=== PATIENT | male | born 1980 | race Two or more races ===

== ENCOUNTER 2024-12-05 09:42 | Emergency (ER) | payer MEDICAID, SELFPAY ==
[2024-12-05 09:43] VITALS: BMI 28.8
[2024-12-05 09:51] VITALS: BP 127/82; PULSE 77; RESP 16; TEMP 36.7; O2SAT 96
--- NOTE | 2024-12-05 10:02 | XR_ITS ---
Examination: Left ribs with PA chest 5 views TECHNIQUE: : Chest PA, RIBS AP, RPO, LPO, AP coned lower ribs 5 views Exam date and time: December 05, 2024 1006 hours INDICATIONS: Sports injury to the left chest 3 days ago left rib pain Findings: Normal heart size No pneumothorax No acute rib fractures IMPRESSION: No pneumothorax pulmonary contusion or hemothorax No acute rib fractures
--- NOTE | 2024-12-05 10:11 | EDNOTE_ITS ---
<Statement entered by Lissa Mejia MD - 12/05/24 13:40> As co-signing physician, I was present and available for consult prn. I concur with the plan and care as documented by the midlevel provider. ED Chest Pain RME/HPI General Chief Complaint: Chest Pain Stated Complaint: CHEST PAIN; KNEED IN CHEST TUESDAY Time Seen by Provider: 12/05/24 10:15 Source: patient Arrival date/time: 12/05/24 09:42 44-year-old male with a history of type 2 diabetes, hyperlipidemia presents to the emergency room with a chief complaint of left-sided rib and chest pain. Patient states he was playing soccer on Tuesday and was accidentally kneed in his chest. Mode of arrival: ambulatory Limitations: no limitations Related Data Home Medications ?Medication ?Instructions ?Recorded ?Confirmed Atorvastatin Calcium 10 PO HS ##30 11/18/15 Benazepril Hcl * (LOTENSIN *) 10 PO QDAY ##30 11/18/15 Metformin Hcl 1,000 PO BID ##60 11/18/15 glimepiride 4 mg tablet 4 PO QDAY ##30 11/18/15 saxagliptin 5 mg tablet (Onglyza) 5 mg PO QDAY #0 tabs 11/21/15 Previous Rx's ?Medication ?Instructions ?Recorded ibuprofen 800 mg tablet 800 mg PO Q8H #20 tabs 12/05 Allergies Allergy/AdvReac Type Severity Reaction Status Date / Time No Known Allergies Allergy Verified 12/05/24 09:46 Review of Systems Review of Systems Systems Reviewed: All systems reviewed, normal except as documented Constitutional Constitutional: Reports system reviewed and no additional complaints, except as documented, Denies fatigue, Denies fever(s), Denies headache(s) and Denies weakness Eyes Eyes: Reports system reviewed and no additional complaints, except as documented, Denies blurry vision and Denies change in vision ENT Ears, Nose, Mouth, and Throat: Reports system reviewed and no additional complaints, except as documented, Denies otalgia, Denies headache(s), Denies nasal congestion, Denies throat swelling and Denies vertigo Cardiovascular Cardiovascular: Reports system reviewed and no additional complaints, except as documented, Denies chest pain, Denies dyspnea and Denies dyspnea on exertion Respiratory Respiratory: Reports system reviewed and no additional complaints, except as documented, Denies chest congestion, Denies cough, Denies dyspnea, Denies dyspnea on exertion and Denies wheezing Gastrointestinal Gastrointestinal: Reports system reviewed and no additional complaints, except as documented, Denies abdominal pain, Denies cramping, Denies nausea and Denies vomiting Genitourinary Genitourinary: Reports system reviewed and no additional complaints, except as documented, Denies dysuria and Denies hematuria Musculoskeletal Musculoskeletal: Reports system reviewed and no additional complaints, except as documented and Denies back pain Integumentary/Breasts Skin/Breast: Reports system reviewed and no additional complaints, except as documented and Denies wounds Neurologic Neurologic: Reports system reviewed and no additional complaints, except as documented, Denies confusion, Denies headache(s), Denies lack of coordination, Denies vertigo and Denies weakness Psychiatric Psychiatric: Reports system reviewed and no additional complaints, except as documented, Denies anxiety, Denies confusion, Denies depression, Denies paranoia, Denies suicidal ideation and Denies tactile hallucinations Endocrine Endocrine: Reports system reviewed and no additional complaints, except as documented and Denies fatigue Hematologic/Lymphatic Hematologic/Lymphatic: Reports system reviewed and no additional complaints, except as documented and Denies lymphadenopathy Allergic/Immunologic Allergic/Immunologic: Reports system reviewed and no additional complaints, except as documented, Denies throat swelling, Denies urticaria and Denies wheezing Past Medical History Social History SMOKING STATUS: Never smoker ED Exam General Limitations: Present no limitations General appearance: Present alert and in no apparent distress Head Head exam: Present atraumatic Eye Eye exam: Present normal appearance, PERRL and EOMI ENT ENT exam: Present normal exam, normal oropharynx and mucous membranes moist Neck Neck exam: Present normal inspection, full ROM and trachea midline Chest Chest inspection: Present normal inspection and symmetric chest wall rise; Absent tenderness Expanded Chest Exam Trauma: Absent crepitus, laceration, abrasion, ecchymosis, wound, penetrating wound or surgical incision Breast: left: tenderness Respiratory Respiratory exam: Present normal lung sounds bilaterally Cardiovascular Cardiovascular exam: Present regular rate, normal rhythm and normal heart sounds Abdominal Exam Abdominal exam: Present soft and normal bowel sounds Extremities Exam Extremities exam: Present normal inspection and full ROM Back Exam Back exam: Present normal inspection and full ROM Neurological Exam Neurological exam: Present alert, oriented X3 and CN II-XII intact Psychiatric Psychiatric exam: Present normal affect and normal mood Skin Skin exam: Present warm, dry, intact and normal color Course Quality Measures none Orders Category Date Time Status XR ribs LT min 3V w CXR1V Stat Exams 12/05/24 10:02 Completed Ketorolac Inj [Toradol Inj] Med 12/05/24 10:02 Discontinued 30 mg IM X1 ONE Vital Signs Vital signs: Vital Signs Temperature 98.0 F 12/05/24 09:51 Pulse Rate 77 12/05/24 09:51 Respiratory Rate 16 12/05/24 09:51 Blood Pressure 127/82 12/05/24 09:51 Pulse Oximetry (%) 96 12/05/24 09:51 Oxygen Delivery Method Room Air 12/05/24 09:51 O2 saturation 96% within normal limits Chest Pain MDM Narrative MDM Narrative:: 44-year-old male with a history of type 2 diabetes, hyperlipidemia presents to the emergency room with a chief complaint of left-sided rib and chest pain. Patient states he was playing soccer on Tuesday and was accidentally kneed in his chest. Patient is hemodynamically stable and in no apparent distress Physical examination shows some left-sided rib tenderness with palpation. Lung sounds are clear bilaterally there is no wheezing or any abnormal breath sounds. O2 saturation is 96% on room air there is no tachypnea or tachycardia Chest x-ray was negative for any acute findings. There is no pneumothorax hemothorax or any pulmonary contusions. Patient was discharged and educated to follow-up with primary care provider in the next 24 to 48 hours and return to the emergency room for any evidence of worsening signs or symptoms Patient data External records reviewed:: [facility] previous records Clinical information provided by:: patient Social determinants that could affect healthcare access:: none Patient has the following chronic illnesses:: Type 2 diabetes and hypertension How is presenting disease/condition affected by chronic disease/condition?: exacerbated by Evaluation data The following diagnostics were reviewed and interpreted by me:: lab results and radiology exam(s) Lab and/or radiology exams considered but not ordered:: Labs and radiology exams considered and ordered Interpretation Summary: Chest [id number]: Normal heart size No pneumothorax No acute rib fractures IMPRESSION: No pneumothorax pulmonary contusion or hemothorax No acute rib fractures Medications / Prescriptions Medications or Prescriptions considered but not ordered:: Medication given Medication administrations:: Medication Administration History Discontinued Medications Ketorolac Tromethamine (Ketorolac Inj 60 Mg/2 Ml Vial) 30 mg IM X1 ONE Stop: 12/05/24 10:03 Last Admin: 12/05/24 10:50 Dose: 30 mg Documented By: Medication given Consultations Consultation(s) initiated? (list below): No Diagnosis Chest Pain Differential Diagnosis: fracture of rib, costochondritis, chest pain and other (Rib contusion) Most likely diagnosis given after review of the tests above:: Rib contusion Admission Indicated Admission indicated?: not indicated Admission Request Was there a request for admission?: No Disposition Plan Disposition Plan: Discharge Discharge Attestation Discharge Attestation: The patient and all family members were given an opportunity to ask questions and understood the discharge instructions. Discharge instructions specifically effects, indications for sooner follow up or return to the emergency department, and the expected course of current diagnosis. Patient condition: Stable Discharge Plan Plan Patient Disposition: HOME (Self Care) Discharge Disposition comment: Stable Prescriptions/Referrals Prescriptions/Med Rec: New ibuprofen 800 mg tablet 800 mg PO Q8H Qty: 20 0RF No Action Atorvastatin Calcium 10 MG tablet 10 PO HS Qty: 30 glimepiride 4 MG tablet 4 PO QDAY Qty: 30 Benazepril Hcl * (LOTENSIN *) 10 MG tablet 10 PO QDAY Qty: 30 Metformin Hcl 1,000 MG tablet 1,000 PO BID Qty: 60 saxagliptin [Onglyza] 5 MG tablet 5 mg PO QDAY Qty: 0 Referrals: Sera Frazier PA-C [Primary Care Provider] - In 1 week Problem List Clinical Impression: Contusion of rib on left side Patient/Caregiver Discharge Instructions Additional Instructions: Please follow-up with your primary care provider in the next 24 to 48 hours The chest x-ray that was completed was negative for any acute findings. For any evidence of worsening signs or symptoms return to the emergency room im mediately Print Language: Tajik Stand Alone Forms: Candice Award Info., Patient Portal Info Letter PA/JAMAL Supervising Physician PA/JAMAL Supervising Physician: Dr. MEJIA
[2024-12-05] MEDS: KETOROLAC INJ 60 MG/2 ML VIAL 30 MG IM (10:50)
== END 2024-12-05 11:21 | disposition home or self-care (01) ==
PROVIDERS: Emergency Provider Nurse Practitioner Family; PCP Physician Assistant
DX: S20.212A Contusion of left front wall of thorax, initial encounter (principal); X58.XXXA Exposure to other specified factors, initial encounter; Y93.66 Activity, soccer
CPT/HCPCS: 71101; 96372; 99283; J1885